=== PATIENT | female | born 1955 | race Caucasian/White ===

== ENCOUNTER → 2020-07-05 09:55 | Outpatient (CLI) | payer BC, SELFPAY ==
--- NOTE | ~2020-07-05 | MM_ITS ---
EXAMINATION: MM screening [facility] BI w jim HISTORY: Screening mammogram TECHNIQUE: Craniocaudal and mediolateral oblique 3-D tomosynthesis images were obtained and synthetic 2-D images were generated. CAD analysis was submitted and interpreted. COMPARISON: 10/04/2016, 12/18/2006 BREAST PARENCHYMAL COMPOSITION: There are scattered areas of fibroglandular density. FINDINGS: RIGHT BREAST: A mass is present in the middle third of the lower-outer breast best appreciated 6 cm f rom the nipple on the craniocaudal view. LEFT BREAST: There is no evidence of suspicious mass, calcification, or architectural distortion to s uggest malignancy. There has been no significant interval change. IMPRESSION: 1. Right breast mass. 2. Additional mammographic views and possible breast ultrasound are recommended. BI-RADS Category 0: Incomplete: Needs additional imaging evaluation. Reviewed, dictated and finalized at location A. IMPRESSION: 1. Right breast mass. 2. Additional mammographic views and possible breast ultrasound are recommended . BI-RADS Category 0: Incomplete: Needs additional imaging evaluation.
== END ==
PROVIDERS: Visit Provider Internal Medicine
DX: Z12.31 Encounter for screening mammogram for malignant neoplasm of breast (principal); R92.8 Other abnormal and inconclusive findings on diagnostic imaging of breast
CPT/HCPCS: 77063; 77067

== ENCOUNTER → 2020-08-04 08:59 | Outpatient (CLI) | payer BC, SELFPAY ==
--- NOTE | ~2020-08-04 | MMUS_ITS ---
EXAMINATION: MM diagnostic mammo unilat RT, US breast RT limited HISTORY: Right lower outer quadrant breast mass reported on 07/05/2020 screening mammogram TECHNIQUE: Additional 3-D tomosynthesis images of the right breast were performed and synthetic 2-D i mages were generated. CAD analysis was submitted and interpreted. High resolution lower outer quadran t right breast ultrasound was performed. COMPARISON: 07/05/2020 bilateral digital screening mammogram FINDINGS: MAMMOGRAPHIC FINDINGS: There is an approximately 9 mm suspicious irregular high density mass in the lower outer quadrant of the right breast. ULTRASOUND: 7:00 6.5 cm from nipple: Irregular hypoechoic solid 9.3 mm mass is noted with internal vascularity an d posterior shadowing, highly suggestive of malignancy. IMPRESSION: 1. 9 mm irregular high density suspicious lower outer quadrant breast mass at 7:00 6.5 cm from nipple , highly suggestive of malignancy 2. Ultrasound-guided biopsy is recommended. BI-RADS category 5, highly suggestive of malignancy. Dr. Quarles telephoned the report and ultrasound guided biopsy recommendation on 08/14/2020 at 1005 hours to Reshma. Reviewed, dictated and finalized at location A. IMPRESSION: 1. 9 mm irregular high density suspicious lower outer quadrant breast mass at 7 :00 6.5 cm from nipple, highly suggestive of malignancy 2. Ultrasound-guided biopsy is recommended. BI-RADS category 5, highly suggestive of malignancy. Dr. Quarles telephoned the report and ultrasound guided biopsy recommendation on at 1005 hours to Reshma.
== END ==
PROVIDERS: Visit Provider Internal Medicine
DX: N63.13 Unspecified lump in the right breast, lower outer quadrant (principal)
CPT/HCPCS: 76642; 77065

== ENCOUNTER → 2023-04-10 09:56 | Outpatient (CLI) | payer MEDICARE, SELFPAY ==
--- NOTE | ~2023-04-10 | US_ITS ---
EXAMINATION: US soft tissue head and neck DATE: 04/10/2023 10:13 INDICATION: Lymphadenopathy. Left posterior scalp mass. TECHNIQUE: Multiple grayscale and Doppler ultrasound images of the head and neck were obtained. COMPARISON: None FINDINGS: There is a normal superficial lymph node posterior to the left ear in the patient's area of concern. IMPRESSION: 1. Normal superficial lymph node posterior to the left ear in the patient's area of concern. Reviewed, dictated and finalized at location A. [employer] HELPER IMPRESSION: 1. Normal superficial lymph node posterior to the left ear in the patient's are a of concern.
== END ==
DX: R59.1 Generalized enlarged lymph nodes (principal)
CPT/HCPCS: 76536